=== PATIENT | female | born 1965 | race Caucasian/White ===

== ENCOUNTER 2019-10-04 08:11 | Emergency (ER) | payer BC ==
[~2019-10-04] VITALS: Ht 175.3 cm; Wt 72.6 kg
[2019-10-04] MEDS ORDERED: Robaxin-750750 MG PO (11:23)
[2019-10-04] MEDS ORDERED: IBUP800 PO (12:57)
== END 2019-10-04 13:21 | disposition home or self-care (01) ==
LOC: ER 08:11
DX: M62.830 Muscle spasm of back (principal); M62.838 Other muscle spasm; M25.522 Pain in left elbow; R20.0 Anesthesia of skin; Z91.018 Allergy to other foods
CPT/HCPCS: 73080; 96372; 99283-25; J1885